=== PATIENT | male | born 1935 | race Caucasian/White ===

== ENCOUNTER 2016-07-11 10:52 | Emergency (ER) | payer MEDICARE ==
--- NOTE | 2016-07-11 11:43 | ED ---
Wound/Laceration HPI - General Chief Complaint: Wound/Laceration Stated Complaint: laceration Time Seen by Provider: 07/11/16 11:04 Source: patient, RN notes reviewed Mode of arrival: ambulatory Limitations: no limitations - History of Present Illness Initial Comments: Patient is an 81-year-old male presents emergency room for evaluation of left wrist laceration. Patient states that he tripped over and fell on top of his coffee mug and cut his wrist. Patient states it began bleeding significantly. Patient states he can't get the bleeding to stop. Patient denies being on any blood thinners. Patient states his last tetanus vaccine was within last 5 years. Patient denies any numbness or tingling in his fingers. Patient states he still is full range of motion of his wrist. Patient denies any other injuries during incident. - Related Data Allergies Allergy/AdvReac Type Severity Reaction Status Date / Time No Known Allergies Allergy Verified 07/11/16 10:57 Review of Systems ROS Statement: Those systems with pertinent positive or pertinent negative responses have been documented in the HPI. ROS Other: All systems not noted in ROS Statement are negative. Past Medical History Additional Past Medical History / Comment(s): irrgegular heart beat History of Any Multi-Drug Resistant Organisms: None Reported Past Surgical History: Hernia Repair Past Psychological History: No Psychological Hx Reported Smoking Status: Never smoker General Exam - General Exam Comments Initial Comments: Sitting in exam room, no acute distress. Limitations: no limitations General appearance: alert, in no apparent distress Head exam: Present: atraumatic, normocephalic, normal inspection Eye exam: Present: normal appearance ENT exam: Present: normal exam Neck exam: Present: normal inspection Respiratory exam: Absent: respiratory distress Left Hand Wrist exam: Present: full ROM, laceration (3 cm V-shaped laceration on the radial portion of the wrist. Active bleeding.) Neuro motor exam: Present: wrist extension intact, thumb opposition intact, thumb IP flexion intact, thumb adduction intact, fingers 2-5 abduction intact Vascular: Present: normal capillary refill (Capillary refill less than 2 seconds ), radial pulse (2+), ulnar pulse (2+) Back exam: Present: normal inspection Neurological exam: Present: alert, oriented X3, CN II-XII intact Psychiatric exam: Present: normal affect, normal mood Skin exam: Present: warm, dry, normal color. Absent: rash Course Vital Signs 07/11/16 07/11/16 10:53 12:15 Temperature 98 F 98.9 F Pulse Rate 82 66 Respiratory 16 18 Rate Blood Pressure 134/73 150/82 O2 Sat by Pulse 98 99 Oximetry Procedures - Laceration Laceration #1 Consent Obtained: verbal consent Indication: laceration Site: other (left wrist) Size (cm): 3 Description: flap, irregular Depth: simple, single layer, arterial injury Anesthetic Used: lidocaine 1% Anesthesia Technique: local infiltration Amount (mls): 3 Pre-repair: wound explored, irrigated extensively Type of Sutures: nylon Size of Sutures: 5-0 Number of Sutures: 10 Technique: simple, interrupted Complications: bleeding Patient Tolerated Procedure: well Medical Decision Making - Medical Decision Making Patient is an 81-year-old male presents to the emergency room for evaluation of left wrist bleeding. Patient did have arterial bleeding on arrival. Blood pressure cuff was placed over left arm and bleeding subsided. Laceration was closed. Pressure bandage was placed over the laceration. Advised patient to return for any increased swelling in his hand or numbness or tingling in his fingers. Advised patient to return for any signs of infection at the laceration area. Patient states he understands everything that was discussed with him. Case discussed with Dr. Dalal. Disposition Clinical Impression: Laceration of left wrist Disposition: HOME SELF-CARE Condition: Good Instructions: Care For Your Stitches (ED), Laceration (ED) Additional Instructions: Keep arm elevated. Keep pressure bandage on for the next 24 hours. Do not get suture area wet. Clean suture area with a damp cloth. Please return in 10-12 days for suture removal. Please follow up with primary care provider in 1-2 days. If any new symptom arises or symptoms worsen, return to ER as soon as possible. Referrals: Pedro Luis Walker MD [Primary Care Provider] - 1-2 days Time of Disposition: 11:38
[2016-07-11 12:17] VITALS: BP 150/82; PULSE 66; RESP 18; TEMP 98.9
== END 2016-07-11 12:17 | disposition home or self-care (01) ==
LOC: EC 10:52
DX: S61.512A Laceration without foreign body of left wrist, initial encounter (principal); W01.118A Fall on same level from slipping, tripping and stumbling with subsequent striking against other sharp object, initial encounter; W45.8XXA Other foreign body or object entering through skin, initial encounter
CPT/HCPCS: 12002; 99282